=== PATIENT | male | born 1985 | race African-American/Black ===

== ENCOUNTER 2021-01-03 16:05 | Emergency (ER) | payer OTHER ==
[2021-01-03 16:20] VITALS: BP 156/96; PULSE 67; TEMP 98.3; BMI 45.3
[2021-01-03] MEDS ORDERED: KETOROLAC TROMETHAMINE 60 MG/2 ML VIAL IM ONE (17:26)
[2021-01-03] MEDS ORDERED: KETOROLAC TROMETHAMINE 60 MG/2 ML VIAL ONE (17:28)
== END 2021-01-03 18:16 | disposition home or self-care (01) ==
LOC: JERFT 16:05
PROC: 3E0233Z Introduction of Anti-inflammatory into Muscle, Percutaneous Approach (ICD-10-PCS; principal; 2021-01-03)
DX: S80.01XA Contusion of right knee, initial encounter (principal)
CPT/HCPCS: 73562-TC-RT-FY; 99284-25